=== PATIENT | female | born 1955 | race Two or more races ===

== ENCOUNTER 2018-06-06 21:22 | Emergency (ER) | payer OTHER ==
[~2018-06-06] VITALS: Ht 160 cm; Wt 63.0 kg
[2018-06-07 01:55] VITALS: BP 146/77
== END 2018-06-07 04:52 | disposition home or self-care (01) ==
LOC: ER 21:22
DX: M79.642 Pain in left hand (principal); W01.198A Fall on same level from slipping, tripping and stumbling with subsequent striking against other object, initial encounter; Y93.89 Activity, other specified; Y92.488 Other paved roadways as the place of occurrence of the external cause
CPT/HCPCS: 99283